=== PATIENT | female | born 1945 | race Caucasian/White ===

== ENCOUNTER 2019-03-21 09:01 | Emergency (ER) | payer OTHER ==
[~2019-03-21] VITALS: Ht 154.9 cm; Wt 72.6 kg
[2019-03-21] MEDS ORDERED: XANAX 0.5 MG0.5 MG PO (09:26)
[2019-03-21] MEDS ORDERED: ARMOUR THYROID15 M1 PO (09:26)
[2019-03-21] MEDS ORDERED: LOSARTAN POTASS50 MG PO (09:26)
[2019-03-21 10:06] LABS: ABSOLUTE NEUTROPHILS 2.6 thou/uL (1.4-8.2); BASOPHILS 1.3 % (0.0-2.0); EOSINOPHILS 6.5 % (0.0-3.0); HEMOGLOBIN 13.5 gm/dL (12.0-15.0); LYMPHOCYTES 20.8 % (24.0-44.0); MCH 28.6 pg (26.0-34.0); MCHC 33.7 g/dL (28.0-37.0); MCV 84.9 fL (80.0-100.0); MONOCYTES 8.8 % (1.0-8.0); PLATELET COUNT 254 thou/uL (150-400); POLYS 62.6 % (36.0-66.0); RBC 4.71 mil/uL (4.20-5.00); RDW 14.8 % (10.5-14.5); WBC 4.1 thou/uL (4.0-11.0)
[2019-03-21 10:07] LABS: URINE BILIRUBIN NEGATIVE (Negative); URINE BLOOD NEGATIVE (Negative); URINE CLARITY CLEAR; URINE COLOR YELLOW; URINE GLUCOSE-RANDOM* NEGATIVE (Negative); URINE KETONES NEGATIVE (Negative); URINE LEUKOCYTES-REFLEX NEGATIVE (Negative); URINE NITRITE-REFLEX NEGATIVE (Negative); URINE PROTEIN (DIPSTICK) TRACE (Negative); URINE UROBILINOGEN 0.2 E.U./dl (0.2-1.0)
[2019-03-21 11:03] LABS: ANION GAP 10 mmol/L (7-16); BUN 16 mg/dL (7-18); CALCIUM 9.8 mg/dL (8.5-10.1); CHLORIDE 100 mmol/L (98-107); CO2 27 mmol/L (21-32); CREATININE 0.9 mg/dL (0.6-1.0); GLUCOSE 119 mg/dL (74-106); POTASSIUM 4.1 mmol/L (3.5-5.1); SODIUM 137 mmol/L (136-145)
[2019-03-21 11:14] LABS: DIRECT BILIRUBIN 0.1 mg/dL (<0.1-0.3); MAGNESIUM 2.1 mg/dL (1.8-2.4); SGOT 19 U/L (15-37); SGPT 20 U/L (30-65); TOTAL BILIRUBIN 0.4 mg/dL (<0.1-1.0); TOTAL PROTEIN 7.9 g/dL (6.4-8.2); TROPONIN-I <0.06 ng/mL (<0.06)
[2019-03-21 12:14] VITALS: BP 164/76
--- NOTE | 2019-03-22 08:32 | EKG ---
[place] [address] [employer] [place] [address] ELECTROCARDIOGRAM REPORT Name: DAYO JOSEPH [id number] ������������������ Admission: 03/21/19 ������������������ Attend Phys: Discharge: 03/21/19 ������������������ Date of : 49 Report #: [id number] ����������������������������������������������������������������� [id number] THIS REPORT FOR: //name// [facility] ED Test Date: 2019-03-21 Test Time: 09:11:39 Pat Name: DAYO JOSEPH Department: Room: Gender: F Music Educator: : 1945 Requested By: Rebekah Craft Order Number: [id number] MD: Fernando Paz Measurements Intervals [place] Rate: 77 P: 65 MT: 179 QRS: -54 QRSD: 97 T: 14 QT: 406 QTc: 460 Interpretive Statements Sinus rhythm Left anterior fascicular block Abnormal R-wave progression, late transition No previous ECG available for comparison Electronically Signed On 03-22-2019 8:32:37 CDT by Fernando Paz [email or web address] ��������������������������������������������� <ELECTRONICALLY SIGNED> ���������������������������������������� By: Fernando Paz MD, [facility] ��������������������������������������������� 03/22/19 0832 0911 0 Fernando Paz MD, FACC /EPI
== END 2019-03-21 12:14 | disposition home or self-care (01) ==
LOC: ER 09:01
PROVIDERS: Emergency Medicine
DX: R42 Dizziness and giddiness (principal); M79.18 Myalgia, other site; R53.83 Other fatigue; I10 Essential (primary) hypertension; E03.9 Hypothyroidism, unspecified; F41.9 Anxiety disorder, unspecified